=== PATIENT | female | born 1990 | race Caucasian/White ===

== ENCOUNTER 2022-06-14 07:01 | Observation (INO) ==
[2022-06-14] MEDS ORDERED: SODIUM CHLORIDE 0.9% 1000ML 1,000 ML IV SCH ×2 (07:30→11:00)
[2022-06-14] MEDS ORDERED: CEFEPIME 2,000 MG/20 ML VIAL IV STA (07:53)
--- NOTE | 2022-06-14 07:53 | Emergency Department Note ---
Impression & Plan Dizziness, Nausea, Leukocytosis, URI (upper respiratory infection) ED Provider Note ED Provider Note NAME: MARAL PETERSON AGE:31 SEX: Female : 1990 ARRIVES VIA: Private vehicle INFORMANT: Patient ED PROVIDER(s): Caridad Ventura DO CHIEF COMPLAINT: Dizziness, fall, headache, fever HPI: This is a 31-year-old female who presents emergency department due to concern for dizziness, headache, fall this morning, and fever. Patient with recent diagnosis of breast cancer. She just had her first chemotherapy treatme nt at [facility] on Thursday. Patient states since that time she has had nausea and weakness, no overt vomiting. She states she woke up around 2 in the morning to use the bathroom and realize she was very dizzy. She states upon leaving the bathroom she felt so dizzy that things were spinning and she fell in her living room. She states she did not strike her head or lose consciousness and in part fell onto the couch. She states she laid there on the couch and fell back to sleep for several hours. She states when she relates she was dizzy she also felt very nauseated but did not vomit. She states she called for her to try and help her at 5 AM as she needed to use the restroom again but felt severely dizzy and nauseated again. Due to her concerning condition they contacted a friend of theirs who is a mobile phone salesperson who came to the house. They state they also contacted Radha. She states the infrared thermometer showed a reading of 101 F. She did not take any Tylenol or ibuprofen, and they decided to come in for additional evaluation. While driving here, her she contacted them back and instructed them to present to the nearest emergency department also. Patient states headaches for started yesterday and have been persistent, throbbing in nature, worse with movement. She states they start frontal and extending superiorly over her head. Dizziness worse with turning her head. PAST MEDICAL HISTORY:See Below PAST SURGICAL HISTORY:See Below FAMILY HISTORY:See Below SOCIAL HISTORY:See Below HOME MEDICATIONS:See Below ALLERGIES:See Below VITALS:See Below PHYSICAL EXAMINATION: GENERAL: alert, well appearing, well nourished, no distress, non-toxic EYE EXAM: normal conjunctiva, PERRL and EOM's grossly intact, slight rightward nystagmus OROPHARYNX: no exudate, no erythema, lips, buccal mucosa, and tongue normal and mucous membranes are moist NECK: supple, no nuchal rigidity, no adenopathy, non-tender LUNGS: Clear to auscultation. Normal chest wall mechanics, no w/r/r HEART: no murmurs, S1 normal and S2 normal, port noted left anterior superior chest wall ABDOMEN: abdomen soft, non-tender, normo-active bowel sounds, no masses, no rebound or guarding. BACK: Back is symmetrical on inspection and there is no deformity, no midline tenderness, no CVA tenderness. SKIN: no rashes, petechiae, orbruising UPPER EXTREMITIES: upper extremities are grossly normal. FROM, nml pulses b/l. LOWER EXTREMITIES: No pitting edema. FROM, nml pulses b/l. NEURO EXAM: Normal sensorium, cranial nerves II-XII grossly intact, normal sp eech, no facial droop,nogross weakness of arms, no gross weakness of legs. Gross sensation intact. No ataxia. Vital Signs: reviewed and remarkable Differential Diagnosis: ICH, metastatic lesion, benign positional vertigo, dehydration, medication adr, hypovolemia, anemia, occult infection, hypoglycemia, electrolyte abnormalities, toxicologic, neurologic, bacteremia/sepsis as well as others were entertained. MEDICAL DECISION MAKING: This is a 31-year-old female status post recent diagnosis of breast cancer with subsequent port placement, now presenting with dizziness, slight headache, and transient fever. No fever on arrival here and no treatment prior to arrival. Patient otherwise hemodynamically stable. Labs drawn and sent, port accessed, cultures obtained, EKG performed and interpreted by me, chest x-ray performed and interpreted by me at bedside. IV fluids started, patient given empiric cefepime due to concern for immunocompromise status. Patient with significant leukocytosis noted, procalcitonin negative. Patient's other labs reassuring. CT head given dizziness and headache was unremarkable. Patient was noted to have mild nystagmus and vertiginous symptoms worsened with position change. Meclizine was added without any significant improvement. She was given IV fluids greater then 30 mL/KG due to concern for evolving sepsis. She remained hemodynamically stable while in the emergency room. I did contact on-call heme- onc at [facility] and discussed the case. They feel the leukocytosis is more likely related to her Neulasta injection during chemotherapy last week but feel it is appropriate to have her observed until cultures result and to monitor her condition for any changes. I discussed all results with the patient. We also discussed that given recent placement of port, this would need to be further considered should her fevers recur and leukocytosis persist. Patient verbalized understanding of all results and was in agreement with the plan. Case discussed with hospitalist team. Consultation(s): 1002: Discussed with Dr. Pérez, [facility] heme/onc. She feels the leukocytosis is related to the Neulasta injection given following chemo on Thursday. 1105: Discussed with Dr. Mckinley, hospitalist service. ER Treatment Provided: See below Diagnostics Interpreted By Me: -ECG: Normal sinus at 66, normal axis, normal intervals, no acute ST/T wave changes -Cardiac Monitoring: An order was placed for continuous cardiac monitoring. The monitor shows a rate of 68 with normal sinus rhythm. -Laboratory studies: As stated above and show below. -Imaging studies: X-ray Chest: A single view study of the chest was reviewed and was negative for cardiomegaly, focal infiltrate, effusion, pulmonary edema, or wide mediastinum. Triage Nursing Note Reviewed Prior/Outside Records Reviewed -external records reviewed, including recent surgery for port placement and referral to her Procedures: [] Critical Care: [] Past Med/Surg History Medical History (Updated 06/15/22 @ 06:31 by Caridad Ventura DO) Breast cancer Surgical History History of tonsillectomy and adenoidectomy [place] teeth extracted Family History Sister Cervix cancer Denies family history of Ovarian cancer Breast cancer Colorectal cancer Social History Smoking Status: Current some day smoker Tobacco Type: Cigarettes packs per day: 0.5; Hx Alcohol Use: No Hx Substance Use: No Preferred Language: Syriac Communication Ability: Effective Analytical Engineer Required: No Beliefs That Will Affect Care: None Current Living Situation: Family and Significant Other Feels Safe at Home: Yes Assistive Devices: Glasses Allergies Allergies Allergy/AdvReac Type Severity Reaction Status Date / Time No Known Allergies Allergy Verified 06/14/22 11:42 Home Meds Home Medications Medication Instructions Recorded Confirmed levonorgestrel 21 mcg/24 hours (8 1 device intrauterine YEARLY 01/01/22 06/14/22 yrs) 52 mg intrauterine device (Mirena) dexamethasone 4 mg tablet 4 mg PO BID 06/14/22 06/14/22 lidocaine-prilocaine 2.5 %-2.5 % 1 applic topical Q6H PRN Pain 06/14/22 06/14/22 topical cream loratadine 10 mg tablet (Claritin) 10 mg PO DAILY PRN Allergy Symptoms 06/14/22 06/14/22 nicotine (polacrilex) 4 mg gum 4 mg PO USEASDIRECTD 06/14/22 06/14/22 nicotine 14 mg/24 hr daily 1 patch topical DAILY 06/14/22 06/14/22 transdermal patch ondansetron HCl 8 mg tablet 8 mg PO Q12 PRN Nausea 06/14/22 06/14/22 prochlorperazine maleate 10 mg 10 mg PO Q8H PRN Nausea 06/14/22 06/14/22 tablet Results & Data (ED) Vital Signs Vital Signs - 24 hr 06/14/22 07:01 06/14/22 07:30 06/14/22 07:31 Temperature 36.6 C Temperature Source Temporal Artery Scan Pulse Rate 87 69 Pulse Rate [Right Finger] 75 Pulse Rate from SpO2 Sensor Pulse Rhythm Pulse Rhythm [Right Finger] Pulse Strength [Right Finger] Respiratory Rate 16 16 Blood Pressure 125/80 Blood Pressure [Left Arm] 125/77 Blood Pressure Mean 95 Blood Pressure Mean [Left Arm] 93 Blood Pressure Position [Left Arm] Lying Pulse Oximetry 98 97 Oxygen Delivery Method Room Air Sepsis Recent Fever Within 48 Hours Yes Sepsis New/Unexplained Change in Mental Status N/A Sepsis Action Taken by Nursing No Action Required 06/14/22 08:34 06/14/22 08:34 06/14/22 08:31 Temperature 36.8 C Temperature Source Oral Pulse Rate 66 66 Pulse Rate [Right Finger] 68 Pulse Rate from SpO2 Sensor Pulse Rhythm Regular Pulse Rhythm [Right Finger] Regular Pulse Strength [Right Finger] Normal Respiratory Rate 16 16 17 Blood Pressure 114/73 Blood Pressure [Left Arm] Blood Pressure Mean 86 Blood Pressure Mean [Left Arm] Blood Pressure Position [Left Arm] Lying Pulse Oximetry 98 96 96 Oxygen Delivery Method Room Air Room Air Room Air Sepsis Recent Fever Within 48 Hours Sepsis New/Unexplained Change in Mental Status Sepsis Action Taken by Nursing 06/14/22 10:00 Temperature Temperature Source Pulse Rate Pulse Rate [Right Finger] Pulse Rate from SpO2 Sensor 60 Pulse Rhythm Pulse Rhythm [Right Finger] Pulse Strength [Right Finger] Respiratory Rate 18 Blood Pressure 115/63 Blood Pressure [Left Arm] Blood Pressure Mean 80 Blood Pressure Mean [Left Arm] Blood Pressure Position [Left Arm] Pulse Oximetry 99 Oxygen Delivery Method Room Air Sepsis Recent Fever Within 48 Hours Sepsis New/Unexplained Change in Mental Status Sepsis Action Taken by Nursing Laboratory Data 06/14/22 07:33 06/14/22 07:33 Lab Results 06/14/22 06/14/22 06/14/22 Range/Units 07:33 07:33 07:33 WBC 28.89 H (4.8-10.8) K/ul RBC 4.82 (4.20-5.40) M/uL Hgb 14.3 (12.0-16.0) g/dl Hct 40.3 (37.0-47.0) % MCV 83.6 (80.0-100.0) fL MCH 29.7 (25.0-34.0) pg MCHC 35.5 (32.0-36.0) g/dL RDW Std Deviation 37.3 (36.4-46.3) fL RDW Coeff of Crys 12.3 (11.5-14.5) % Plt Count 212 (130-400) K/uL MPV 10.5 (9.4-12.4) fL Neutrophils % (Manual) 97 % Lymphocytes % (Manual) 2 % Metamyelocytes % (Man) 1 % Neutrophils # (Manual) 28.02 H (1.40-6.50) K/uL Total Absolute Neuts 28.02 H (1.4-6.5) K/uL Lymphocytes # (Manual) 0.58 L (1.2-3.4) K/uL Total Abs Lymphocytes 0.58 L (1.2-3.4) K/uL Metamyelocytes # (Man) 0.29 H (0-0) K/uL Sodium 136 (136-145) mmol/L Potassium 4.3 (3.5-5.1) mmol/L Chloride 104 (98-107) mmol/L Carbon Dioxide 28 (21-32) mmol/L Anion Gap 4 (3-11) BUN 13 (6-23) mg/dl Creatinine 0.64 (0.6-1.2) mg/dl Est Cr Clr Drug Dosing 135.0 ml/min Est GFR ( Amer) 135.9 ml/min Est GFR (Non-Af Amer) 117.2 ml/min BUN/Creatinine Ratio 20.3 H (10-20) Glucose 94 (70-99(Fasting)) mg/dl Lactate 1.1 (0.4-2.0) mmol/L Calcium 8.9 (8.5-10.1) mg/dl Magnesium 2.2 (1.7-2.4) mg/dl Total Bilirubin 1.1 H (0.2-1.0) mg/dl Direct Bilirubin 0.2 (0-0.2) mg/dl AST 13 (13-39) U/L ALT 13 (7-52) U/L Alkaline Phosphatase 68 (34-104) U/L Troponin I High Sens 4.2 (0-14) pg/ml Total Protein 6.8 (6.0-8.3) gm/dl Albumin 4.3 (3.4-5.0) gm/dl Procalcitonin (0-0.5) ng/ml HCG, Qual (Negative) Urine Color Urine Appearance (Clear) Urine pH (4.5-7.5) Ur Specific Luna (1.000-1.030) Urine Protein (Negative) Urine Glucose (UA) (Negative) Urine Ketones (Negative) Urine Blood (Negative) Urine Nitrite (Negative) Urine Bilirubin (Negative) Urine Urobilinogen (Negative) Ur Leukocyte Esterase (Negative) Adenovirus (PCR) (NotDetected) B. pertussis DNA (PCR) (NotDetected) B.parapertussis DNA PCR (NotDetected) C. pneumoniae DNA (PCR) (NotDetected) Coronavirus OC43 (PCR) (NotDetected) Coronavirus HKU1 (PCR) (NotDetected) Coronavirus 229E (PCR) (NotDetected) SARS-CoV-2 (PCR) (NotDetected) Coronavirus NL63 (PCR) (NotDetected) Human Metapneumovir PCR (NotDetected) Influenza Type A (PCR) (NotDetected) Influenza Type B (PCR) (NotDetected) M. pneumoniae (PCR) (NotDetected) Parainfluenza 1 (PCR) (NotDetected) Parainfluenza 2 (PCR) (NotDetected) Parainfluenza 3 (PCR) (NotDetected) Parainfluenza 4 (PCR) (NotDetected) RSV (PCR) (NotDetected) Entero/Rhino (PCR) (NotDetected) 06/14/22 06/14/22 06/14/22 Range/Units 07:33 07:33 09:09 WBC (4.8-10.8) K/ul RBC (4.20-5.40) M/uL Hgb (12.0-16.0) g/dl Hct (37.0-47.0) % MCV (80.0-100.0) fL MCH (25.0-34.0) pg MCHC (32.0-36.0) g/dL RDW Std Deviation (36.4-46.3) fL RDW Coeff of Crys (11.5-14.5) % Plt Count (130-400) K/uL MPV (9.4-12.4) fL Neutrophils % (Manual) % Lymphocytes % (Manual) % Metamyelocytes % (Man) % Neutrophils # (Manual) (1.40-6.50) K/uL Total Absolute Neuts (1.4-6.5) K/uL Lymphocytes # (Manual) (1.2-3.4) K/uL Total Abs Lymphocytes (1.2-3.4) K/uL Metamyelocytes # (Man) (0-0) K/uL Sodium (136-145) mmol/L Potassium (3.5-5.1) mmol/L Chloride (98-107) mmol/L Carbon Dioxide (21-32) mmol/L Anion Gap (3-11) BUN (6-23) mg/dl Creatinine (0.6-1.2) mg/dl Est Cr Clr Drug Dosing ml/min Est GFR ( Amer) ml/min Est GFR (Non-Af Amer) ml/min BUN/Creatinine Ratio (10-20) Glucose (70-99(Fasting)) mg/dl Lactate (0.4-2.0) mmol/L Calcium (8.5-10.1) mg/dl Magnesium (1.7-2.4) mg/dl Total Bilirubin (0.2-1.0) mg/dl Direct Bilirubin (0-0.2) mg/dl AST (13-39) U/L ALT (7-52) U/L Alkaline Phosphatase (34-104) U/L Troponin I High Sens (0-14) pg/ml Total Protein (6.0-8.3) gm/dl Albumin (3.4-5.0) gm/dl Procalcitonin 0.10 (0-0.5) ng/ml HCG, Qual Negative (Negative) Urine Color Urine Appearance (Clear) Urine pH (4.5-7.5) Ur Specific Luna (1.000-1.030) Urine Protein (Negative) Urine Glucose (UA) (Negative) Urine Ketones (Negative) Urine Blood (Negative) Urine Nitrite (Negative) Urine Bilirubin (Negative) Urine Urobilinogen (Negative) Ur Leukocyte Esterase (Negative) Adenovirus (PCR) Not Detected (NotDetected) B. pertussis DNA (PCR) Not Detected (NotDetected) B.parapertussis DNA PCR Not Detected (NotDetected) C. pneumoniae DNA (PCR) Not Detected (NotDetected) Coronavirus OC43 (PCR) Not Detected (NotDetected) Coronavirus HKU1 (PCR) Not Detected (NotDetected) Coronavirus 229E (PCR) Not Detected (NotDetected) SARS-CoV-2 (PCR) Not Detected (NotDetected) Coronavirus NL63 (PCR) Not Detected (NotDetected) Human Metapneumovir PCR Not Detected (NotDetected) Influenza Type A (PCR) Not Detected (NotDetected) Influenza Type B (PCR) Not Detected (NotDetected) M. pneumoniae (PCR) Not Detected (NotDetected) Parainfluenza 1 (PCR) Not Detected (NotDetected) Parainfluenza 2 (PCR) Not Detected (NotDetected) Parainfluenza 3 (PCR) Not Detected (NotDetected) Parainfluenza 4 (PCR) Not Detected (NotDetected) RSV (PCR) Not Detected (NotDetected) Entero/Rhino (PCR) DETECTED A* (NotDetected) 06/14/22 Range/Units 09:13 WBC (4.8-10.8) K/ul RBC (4.20-5.40) M/uL Hgb (12.0-16.0) g/dl Hct (37.0-47.0) % MCV (80.0-100.0) fL MCH (25.0-34.0) pg MCHC (32.0-36.0) g/dL RDW Std Deviation (36.4-46.3) fL RDW Coeff of Crys (11.5-14.5) % Plt Count (130-400) K/uL MPV (9.4-12.4) fL Neutrophils % (Manual) % Lymphocytes % (Manual) % Metamyelocytes % (Man) % Neutrophils # (Manual) (1.40-6.50) K/uL Total Absolute Neuts (1.4-6.5) K/uL Lymphocytes # (Manual) (1.2-3.4) K/uL Total Abs Lymphocytes (1.2-3.4) K/uL Metamyelocytes # (Man) (0-0) K/uL Sodium (136-145) mmol/L Potassium (3.5-5.1) mmol/L Chloride (98-107) mmol/L Carbon Dioxide (21-32) mmol/L Anion Gap (3-11) BUN (6-23) mg/dl Creatinine (0.6-1.2) mg/dl Est Cr Clr Drug Dosing ml/min Est GFR ( Amer) ml/min Est GFR (Non-Af Amer) ml/min BUN/Creatinine Ratio (10-20) Glucose (70-99(Fasting)) mg/dl Lactate (0.4-2.0) mmol/L Calcium (8.5-10.1) mg/dl Magnesium (1.7-2.4) mg/dl Total Bilirubin (0.2-1.0) mg/dl Direct Bilirubin (0-0.2) mg/dl AST (13-39) U/L ALT (7-52) U/L Alkaline Phosphatase (34-104) U/L Troponin I High Sens (0-14) pg/ml Total Protein (6.0-8.3) gm/dl Albumin (3.4-5.0) gm/dl Procalcitonin (0-0.5) ng/ml HCG, Qual (Negative) Urine Color Yellow Urine Appearance Clear (Clear) Urine pH 6.5 (4.5-7.5) Ur Specific Luna 1.016 (1.000-1.030) Urine Protein Negative (Negative) Urine Glucose (UA) Negative (Negative) Urine Ketones Negative (Negative) Urine Blood Negative (Negative) Urine Nitrite Negative (Negative) Urine Bilirubin Negative (Negative) Urine Urobilinogen Negative (Negative) Ur Leukocyte Esterase Negative (Negative) Adenovirus (PCR) (NotDetected) B. pertussis DNA (PCR) (NotDetected) B.parapertussis DNA PCR (NotDetected) C. pneumoniae DNA (PCR) (NotDetected) Coronavirus OC43 (PCR) (NotDetected) Coronavirus HKU1 (PCR) (NotDetected) Coronavirus 229E (PCR) (NotDetected) SARS-CoV-2 (PCR) (NotDetected) Coronavirus NL63 (PCR) (NotDetected) Human Metapneumovir PCR (NotDetected) Influenza Type A (PCR) (NotDetected) Influenza Type B (PCR) (NotDetected) M. pneumoniae (PCR) (NotDetected) Parainfluenza 1 (PCR) (NotDetected) Parainfluenza 2 (PCR) (NotDetected) Parainfluenza 3 (PCR) (NotDetected) Parainfluenza 4 (PCR) (NotDetected) RSV (PCR) (NotDetected) Entero/Rhino (PCR) (NotDetected) Administered Medications Acetaminophen (Acetaminophen 325 Mg Tab) 650 mg PO Q4H PRN PRN Reason: pain/fever Stop: 07/14/22 13:11 Last Admin: 06/14/22 19:45 Dose: 650 mg Documented By: Admin: 06/14/22 14:20 Dose: 650 mg Documented By: KD Enoxaparin Sodium (Enoxaparin Inj 40 Mg/0.4 Ml Syr) 40 mg SQ QPM EVANGELISTA Stop: 07/14/22 20:59 Last Admin: 06/14/22 19:46 Dose: Not Given Documented By: ARPITA Heparin Sodium (Porcine) (Heparin 100 Unit/Ml 5ml Flush) 5 ml FLUSH PRN PRN PRN Reason: Flush Stop: 07/14/22 14:15 Last Admin: 06/15/22 05:10 Dose: 5 ml Documented By: Admin: 06/14/22 21:41 Dose: 5 ml Documented By: Admin: 06/14/22 14:21 Dose: 5 ml Documented By: PEEWEE Cefepime HCl 2,000 mg/ Syringe 20 mls @ 5 mls/min IV Q8H EVANGELISTA; Protocol Stop: 06/16/22 20:59 Last Admin: 06/15/22 05:10 Dose: 5 mls/min Documented By: Admin: 06/14/22 21:41 Dose: 5 mls/min Documented By: ARPITA Loratadine (Loratadine 10 Mg Tab) 10 mg PO DAILY EVANGELISTA Stop: 07/14/22 13:11 Last Admin: 06/14/22 14:52 Dose: 10 mg Documented By: PEEWEE Miscellaneous (Remove Nicoderm Patch) 1 each N/A QAM EVANGELISTA Stop: 07/14/22 13:59 Last Admin: 06/14/22 14:04 Dose: Not Given Documented By: PEEWEE Nicotine (Nicotine 14 Mg/24 Hr Patch) 14 mg TD QAM [facility] Stop: 07/14/22 13:59 Last Admin: 06/14/22 14:04 Dose: Not Given Documented By: PEEWEE Polyethylene Glycol (Polyethylene (Miralax) 17 Gm Pack) 17 gm PO BID EVANGELISTA Stop: 07/14/22 20:59 Last Admin: 06/14/22 19:45 Dose: 17 gm Documented By: ARPITA Discontinued Medications Sodium Chloride (Nss 1000ml) 1,000 mls @ 999 mls/hr IV .Q1H1M EVANGELISTA Stop: 06/14/22 08:30 Last Infusion: 06/14/22 09:43 Dose: 0 mls/hr Documented By: Admin: 06/14/22 08:24 Dose: 999 mls/hr Documented By: KAYLEN Cefepime HCl (Maxipime) 2,000 mg in 20 mls @ 5 mls/min IV NOW STA; Protocol Stop: 06/14/22 07:56 Last Admin: 06/14/22 08:24 Dose: 5 mls/min Documented By: KAYLEN Acetaminophen (Ofirmev) 1,000 mg in 100 mls @ 400 mls/hr IV NOW STA Stop: 06/14/22 08:08 Last Infusion: 06/14/22 09:21 Dose: 0 mls/hr Documented By: Admin: 06/14/22 08:24 Dose: 400 mls/hr Documented By: KAYLEN Sodium Chloride (Nss 1000ml) 1,000 mls @ 999 mls/hr IV .Q1H1M ONE Stop: 06/14/22 09:49 Last Infusion: 06/14/22 10:33 Dose: 0 mls/hr Documented By: Admin: 06/14/22 09:22 Dose: 999 mls/hr Documented By: KAYLEN Sodium Chloride (Nss 1000ml) 1,000 mls @ 125 mls/hr IV .Q8H EVANGELISTA Stop: 07/14/22 10:59 Last Infusion: 06/14/22 13:45 Dose: 0 mls/hr Documented By: Admin: 06/14/22 12:25 Dose: 125 mls/hr Documented By: QGV Ketorolac Tromethamine (Ketorolac Tromethamine 15 Mg/Ml Vial) 10 mg IV NOW ONE Stop: 06/14/22 09:42 Last Admin: 06/14/22 09:52 Dose: 10 mg Documented By: KAYLEN Meclizine HCl (Meclizine Hcl 25 Mg Tab) 25 mg PO NOW STA Stop: 06/14/22 09:42 Last Admin: 06/14/22 09:52 Dose: 25 mg Documented By: KAYLEN Ondansetron HCl (Ondansetron Inj 2 Mg/Ml 2 Ml Vial) 4 mg IV NOW STA Stop: 06/14/22 07:55 Last Admin: 06/14/22 08:24 Dose: 4 mg Documented By: KAYLEN Polyethylene Glycol (Polyethylene (Miralax) 17 Gm Pack) 17 gm PO ONE STA Stop: 06/14/22 12:18 Last Admin: 06/14/22 12:31 Dose: 17 gm Documented By: QGV Imaging Data Radiologist's Impression: Chest X-Ray 06/14/22 07:19 XR chest 1V portable CLINICAL HISTORY: Sepsis TECHNIQUE: Single frontal radiograph of the chest was obtained. Comparison: None available at the time of this dictation. FINDINGS: A port catheter is seen. The cardiomediastinal silhouette is normal. The lungs are clear. No evidence of pleural effusion or pneumothorax. IMPRESSION: No acute chest disease. ACT 112: Negative or not required by law. Electronically signed by: Guille Gilmore M.D. 06/14/2022 8:[address] 06/14/22 07:41 CT head/brain wo con CLINICAL HISTORY: headache, dizzy, recent chemo Technique: Contiguous axial CT images of the head were acquired from the base of the skull to the vertex without intravenous contrast administration. Images were viewed in brain, subdural and bone windows. Automated dose lowering techniques and/or adjustment according to patient size were utilized for this exam. Comparison: None available at the time of this dictation. Findings: The ventricles, basal cisterns, and cerebral sulci are normal. There is no acute intracranial hemorrhage or evidence of acute territorial infarction. Neither mass effect, shift of the midline structures, nor abnormal extra-axial fluid collections are shown. Imaged portions of the paranasal sinuses and mastoid air cells are clear. The orbits appear normal. There are no acute fractures of the calvaria or scalp swelling. Impression: No acute intracranial hemorrhage, no evidence of acute territorial infarction or other acute intracranial disease process. ACT 112: Negative or not required by law. Electronically signed by: Guille Gilmore M.D. 06/14/2022 8:23 AM Discharge Plan Visit Data Chief Complaint: Vertigo Stated Complaint: FEVER ED Provider: Caridad Ventura Discharge Problem: Dizziness, Nausea, Leukocytosis, URI (upper respiratory infection) Patient Disposition: Admitted As Inpatient Discharge Instructions Interventions: ED Discharge Assessment Last Done: 06/14/22 12:50
[2022-06-14] MEDS ORDERED: ACETAMINOPHEN 1,000 MG/100 ML VIAL IV STA (07:54)
[2022-06-14] MEDS ORDERED: ONDANSETRON INJ 2 MG/ML 2 ML VIAL IV STA (07:54)
[2022-06-14 08:14] LABS: Albumin Level 4.3 gm/dl (3.4-5.0); BUN Creatinine Ratio 20.3 (10-20); Bilirubin Direct 0.2 mg/dl (0-0.2); Bilirubin,Total 1.1 mg/dl (0.2-1.0); Calcium 8.9 mg/dl (8.5-10.1); Est GFR (African American) 135.9 ml/min; Est GFR (Non-African American) 117.2 ml/min; Magnesium 2.2 mg/dl (1.7-2.4); Potassium 4.3 mmol/L (3.5-5.1); Total Protein 6.8 gm/dl (6.0-8.3)
[2022-06-14 08:15] LABS: Hematocrit (blood only) 40.3 % (37.0-47.0); Hemoglobin 14.3 g/dl (12.0-16.0); Mean Corpuscular Hemoglobin 29.7 pg (25.0-34.0); Mean Corpuscular Hgb Conc 35.5 g/dL (32.0-36.0); Mean Corpuscular Volume 83.6 fL (80.0-100.0); Mean Platelet Volume 10.5 fL (9.4-12.4); Platelet Count 212 K/uL (130-400); RDW Coefficient of Variation 12.3 % (11.5-14.5); RDW Standard Deviation 37.3 fL (36.4-46.3); Red Blood Count 4.82 M/uL (4.20-5.40); White Blood Count 28.89 K/ul (4.8-10.8)
[2022-06-14 08:17] LABS: Pregnancy Test, Serum Negative (Negative)
--- NOTE | 2022-06-14 08:18 | XRay Report ---
XR chest 1V portable CLINICAL HISTORY: Sepsis TECHNIQUE: Single frontal radiograph of the chest was obtained. Comparison: None available at the time of this dictation. FINDINGS: A port catheter is seen. The cardiomediastinal silhouette is normal. The lungs are clear. No evidence of pleural effusion or pneumothorax. IMPRESSION: No acute chest disease. ACT 112: Negative or not required by law. Electronically signed by: Guille Gilmore M.D. 06/14/2022 8:16 AM
[2022-06-14 08:19] LABS: Troponin I High Sensitivity 4.2 pg/ml (0-14)
[2022-06-14 08:23] LABS: ALC (manual) 0.58 K/uL (1.2-3.4); ANC (manual) 28.02 K/uL (1.4-6.5); Lymphocytes # (manual) 0.58 K/uL (1.2-3.4); Lymphocytes % (manual) 2 %; Metamyelocytes # (manual) 0.29 K/uL (0-0); Metamyelocytes % (manual) 1 %; Neutrophils # (manual) 28.02 K/uL (1.40-6.50); Neutrophils % (manual) 97 %
--- NOTE | 2022-06-14 08:24 | CT Scan Report ---
CT head/brain wo con CLINICAL HISTORY: headache, dizzy, recent chemo Technique: Contiguous axial CT images of the head were acquired from the base of the skull to the jeffrey rommel without intravenous contrast administration. Images were viewed in brain, subdural and bone [facility]. Automated dose lowering techniques and/or adjustment according to patient size were utilized for this exam. Comparison: None available at the time of this dictation. Findings: The ventricles, basal cisterns, and cerebral sulci are normal. There is no acute intracranial hemorrh age or evidence of acute territorial infarction. Neither mass effect, shift of the midline structures , nor abnormal extra-axial fluid collections are shown. Imaged portions of the paranasal sinuses and mastoid air cells are clear. The orbits appear normal. There are no acute fractures of the calvaria or scalp swelling. Impression: No acute intracranial hemorrhage, no evidence of acute territorial infarction or other acute intracra nial disease process. ACT 112: Negative or not required by law. Electronically signed by: Guille Gilmore M.D. 06/14/2022 8:23 AM
[2022-06-14] MEDS ORDERED: SODIUM CHLORIDE 0.9% 1000ML 1,000 ML IV ONE (08:49)
[2022-06-14 09:30] LABS: Appearance Urine Clear (Clear); Bilirubin Urine Negative (Negative); Blood Urine Negative (Negative); Color Urine Yellow; Glucose Urine UA Negative (Negative); Ketones Urine Negative (Negative); Leukocyte Esterase Urine Negative (Negative); Nitrite Urine Negative (Negative); Protein Urine Negative (Negative); Specific Gravity Urine 1.016 (1.000-1.030); Urobilinogen Urine Negative (Negative); pH Urine 6.5 (4.5-7.5)
[2022-06-14] MEDS ORDERED: MECLIZINE HCL 25 MG TAB PO STA (09:41)
[2022-06-14] MEDS ORDERED: KETOROLAC TROMETHAMINE 15 MG/ML VIAL IV ONE (09:41)
[2022-06-14 10:23] LABS: Adenovirus PCR Not Detected (NotDetected); Bordetella parapertussis PCR Not Detected (NotDetected); Bordetella pertussis PCR Not Detected (NotDetected); Chlamydia pneumoniae PCR Not Detected (NotDetected); Coronavirus 229E PCR Not Detected (NotDetected); Coronavirus CoV-2 (COVID19)PCR Not Detected (NotDetected); Coronavirus HKU1 PCR Not Detected (NotDetected); Coronavirus NL63 PCR Not Detected (NotDetected); Coronavirus OC43PCR Not Detected (NotDetected); Human Metapneumovirus PCR Not Detected (NotDetected); Influenza A PCR Not Detected (NotDetected); Influenza B PCR Not Detected (NotDetected); Mycoplasma pneumoniae PCR Not Detected (NotDetected); Parainfluenza Virus 1 PCR Not Detected (NotDetected); Parainfluenza Virus 2 PCR Not Detected (NotDetected); Parainfluenza Virus 3 PCR Not Detected (NotDetected); Parainfluenza Virus 4 PCR Not Detected (NotDetected); Respiratory Syncytial VirusPCR Not Detected (NotDetected)
[2022-06-14 10:33] LABS: Rhinovirus/Enterovirus PCR DETECTED (NotDetected)
--- NOTE | 2022-06-14 11:35 | History & Physical Report ---
Date of Service June 14, 2022 Assessment & Plan (1) Fever: Plan: Occurred at home and not recurred here. If symptoms not improving or recurrent fever consider lumbar puncture and brain MRI w/wo contrast (2) Vertigo: Plan: Currently resolved in the ER while in bed after ceclizine given Suspect peripheral vertigo in setting of viral infection - ie. vestibular neuritis given concurrent viral infection, young age, no focal neurology elsewhere. Meclizine 25mg PO q8h PRN for vertigo If symptoms not improving or recurrent fever consider lumbar puncture and brain MRI w/wo contrast as above Less likely migrainous given history and current headache (3) Headache: Plan: Suspect secondary to viral infection Very low suspicion of encephalitis/meningitis Does not fit with her usual migraines acetaminophen PRN MRI brain +/- lumbar puncture criteria as above (4) Acute viral syndrome: Plan: Rhino/enterovirus positive - suspect acute illness and vertigo due to this Supportive care only (5) Leucocytosis: Plan: Suspected secondary to Neulasta rather than infective etiology but given recent chemotherapy: Blood cultures - taken from both port and peripherally Empiric cefepime (6) Breast cancer: Plan VTE Prophylaxis - Lovenox 40mg SQ daily Diet - regular Disposition - admit to med/surg Admission and Anticipated Discharge Date Admission Date: June 14, 2022 History of Present Illness Chief Complaint: Fever, headache, vertigo Primary Care Provider: DO Stefania Coppola is a 31 year old female with breast cancer s/p double mastectomy on chemotherapy who presents to the ER with nausea, headache, dizziness and fever. She started her first round of chemotherapy on Thursday with nausea since then. She is on docetaxel and cyclophosphamide. She had a mild reaction of face tingling while on cyclophosphamide at the time of the infusion but this resolved with Benadryl. On dexamethasone day before and 2 days after procedure only (took last dose yesterday evening). This morning she woke up around 2am and had sudden onset room spinning dizziness and nausea. She has been having vertigo since then with associated headache. No prior history of vertigo. She has a history of migraines but those headaches feel distinctly different to her headache today which is less light sensitive and no associated nausea. Current headache is pounding, all over her head, severity 5/10 currently, 7/10 at worse. She denies any neck pain. They took her temperature which was 101 degrees Fahrenheit this morning which prompted her to come to the ER for further evaluation. No nasal congestion, sinus pain, cough, shortness of breath, chest pain, abdominal pain, diarrhea. She does not constipation with no bowel movement since chemotherapy and took a Dulcolax unsuccessfully last night. She is passing flatus. In the ER she was given acetaminophen, Toradol, ondansetron, 2L NSS bolus and meclizine to good effect and she is feeling much improved without vertigo at this time but still with a headache. ER provider discussed with [facility] and recommended empiric antibiotics with cefepime and observation while blood cultures are pending. She was referred to medicine for admission and ongoing management of fever, chemo, upper respiratory infection. Allergies Allergy/AdvReac Type Severity Reaction Status Date / Time No Known Allergies Allergy Verified 06/14/22 11:42 Home Medications Medication Instructions Recorded Confirmed Type levonorgestrel 21 mcg/24 hours (8 1 device intrauterine YEARLY 01/01/22 06/14/22 History yrs) 52 mg intrauterine device (Mirena) dexamethasone 4 mg tablet 4 mg PO BID 06/14/22 06/14/22 History lidocaine-prilocaine 2.5 %-2.5 % 1 applic topical Q6H PRN Pain 06/14/22 06/14/22 History topical cream loratadine 10 mg tablet (Claritin) 10 mg PO DAILY PRN Allergy Symptoms 06/14/22 06/14/22 History nicotine (polacrilex) 4 mg gum 4 mg PO USEASDIRECTD 06/14/22 06/14/22 History nicotine 14 mg/24 hr daily 1 patch topical DAILY 06/14/22 06/14/22 History transdermal patch ondansetron HCl 8 mg tablet 8 mg PO Q12 PRN Nausea 06/14/22 06/14/22 History prochlorperazine maleate 10 mg 10 mg PO Q8H PRN Nausea 06/14/22 06/14/22 History tablet Past Med/Surg History Medical History (Updated 06/14/22 @ 12:48 by Ishan Mckinley MD) Breast cancer Surgical History History of tonsillectomy and adenoidectomy [place] teeth extracted Family History Sister Cervix cancer Denies family history of Ovarian cancer Breast cancer Colorectal cancer Social History Smoking Status: Current every day smoker Tobacco Type: Cigarettes packs per day: 0.5; Preferred Language: Estonian Feels Safe at Home: Yes Review of Systems Review of Systems: All systems reviewed & are unremarkable except as noted in HPI & below Physical Exam Constitutional: WD/WN, vitals as above Eyes: PERRL, conjunctivae normal, anicteric sclerae EOM intact bilaterally; no nystagmus ENMT: external ear and nose normal, oropharynx normal Neck: trachea midline, no thyromegaly Respiratory: normal respiratory effort, lungs clear to auscultation Cardiovascular: RRR, no murmur, no edema Gastrointestinal (Abdomen): normal bowel sounds, soft, nontender, no hepatosplenomegaly Musculoskeletal: no cyanosis or clubbing, extremities motor strength 5/5 Skin: no rashes, warm and dry Neurologic: moves all extremities and awake; no focal motor deficits and not confused Speech / Cognition: normal speech Motor/Sensory: no tremor Cranial Nerves: PERRL, normal accommodation, EOM intact bilaterally, normal facial strength, tongue midline, able to rotate head bilaterally, able to elevate shoulders bilaterally, no nystagmus and symmetric palate elevation Coordination: normal [id number] test Psychiatric: A+Ox3, euthymic affect Results & Data Results & Data ([facility]) Vital Signs (Past 12 Hours) Vital Signs Temp Pulse Pulse Resp BP BP Pulse Ox 06/14/22 10:00 18 115/63 99 06/14/22 08:31 66 17 114/73 96 06/14/22 08:34 36.8 C 68 16 96 06/14/22 08:34 66 16 98 06/14/22 07:31 69 06/14/22 07:30 75 16 125/77 97 06/14/22 07:01 36.6 C 87 16 125/80 98 O2 Del Method 06/14/22 10:00 Room Air 06/14/22 08:31 Room Air 06/14/22 08:34 Room Air 06/14/22 08:34 Room Air 06/14/22 07:31 06/14/22 07:30 Room Air 06/14/22 07:01 Laboratory Results Abnormal lab results 06/14/22 06/14/22 06/14/22 Range/Units 07:33 07:33 09:09 WBC 28.89 H (4.8-10.8) K/ul Neutrophils # (Manual) 28.02 H (1.40-6.50) K/uL Total Absolute Neuts 28.02 H (1.4-6.5) K/uL Lymphocytes # (Manual) 0.58 L (1.2-3.4) K/uL Total Abs Lymphocytes 0.58 L (1.2-3.4) K/uL Metamyelocytes # (Man) 0.29 H (0-0) K/uL BUN/Creatinine Ratio 20.3 H (10-20) Total Bilirubin 1.1 H (0.2-1.0) mg/dl Entero/Rhino (PCR) DETECTED A* (NotDetected) Diagnostic Findings CT head/brain wo con CLINICAL HISTORY: headache, dizzy, recent chemo Technique: Contiguous axial CT images of the head were acquired from the base of the skull to the vertex without intravenous contrast administration. Images were viewed in brain, subdural and bone windows. Automated dose lowering techniques a nd/or adjustment according to patient size were utilized for this exam. Comparison: None available at the time of this dictation. Findings: The ventricles, basal cisterns, and cerebral sulci are normal. There is no acute intracranial hemorrhage or evidence of acute territorial infarction. Neither mass effect, shift of the midline structures, nor abnormal extra-axial fluid collections are shown. Imaged portions of the paranasal sinuses and mastoid air cells are clear. The orbits appear normal. There are no acute fractures of the calvaria or scalp swelling. Impression: No acute intracranial hemorrhage, no evidence of acute territorial infarction or other acute intracranial disease process. XR chest 1V portable CLINICAL HISTORY: Sepsis TECHNIQUE: Single frontal radiograph of the chest was obtained. Comparison: None available at the time of this dictation. FINDINGS: A port catheter is seen. The cardiomediastinal silhouette is normal. The lungs are clear. No evidence of pleural effusion or pneumothorax. IMPRESSION: No acute chest disease. Medications Administered ER Medications Given: NSS 1L bolus Cefepime 2g IV Ondansetron 4mg IV Acetaminophen 1g IV NSS 1L bolus Meclizine 25mg PO Toradol 10mg IV ECG Indication: other Rate (beats per minute): 66 Rhythm: normal sinus Findings: no acute ischemic change Comparison ECG Date: no prior available Code Status & VTE Plan Code Status Full VTE Prophylaxis Plan VTE Prophylaxis will be ordered: Yes PG Care Time/CCT Total # of Minutes Spent Total Time Spent with Patient: Total time spent is greater than 50% in coordination of care (as documented) at patient's floor/unit and/or counseling patient: Coding Level of Care Code 53010 INT INP/OBS CARE 3/75MIN Diagnoses Fever R50.9 Vertigo R42 Headache R51.9 Acute viral syndrome B34.9 Leucocytosis D72.829 Breast cancer C50.919
[2022-06-14] MEDS ORDERED: POLYETHYLENE (MIRALAX) 17 GM PACK PO STA (12:17)
[2022-06-14] MEDS ORDERED: ONDANSETRON INJ 2 MG/ML 2 ML VIAL IV PRN (13:12)
[2022-06-14] MEDS ORDERED: MECLIZINE HCL 25 MG TAB PO PRN (13:12)
[2022-06-14] MEDS ORDERED: PROCHLORPERAZINE 10 MG in SYRINGE 8 ML IV PRN (13:12)
[2022-06-14] MEDS ORDERED: NICOTINE POLACRILEX 2 MG GUM MT PRN (13:23)
[2022-06-14] MEDS: NICOTINE 14 MG/24 HR PATCH TD SCH (14:04)
[2022-06-14] MEDS: ACETAMINOPHEN 325 MG TAB PO PRN ×2 (14:20→19:45)
[2022-06-14] MEDS: HEPARIN 100 UNIT/ML 5ML FLUSH FLUSH PRN ×2 (14:21→21:41)
--- NOTE | 2022-06-14 14:32 | Electrocardiogram Report ---
Test Reason : Blood Pressure : / mmHG Vent. Rate : 066 BPM Atrial Rate : 066 BPM P-R Int : 148 ms QRS Dur : 086 ms QT Int : 390 ms P-R-T Axes : 073 061 045 degrees QTc Int : 408 ms Normal sinus rhythm Normal ECG No previous ECGs available Confirmed by Dario Urrutia ([id number]) on 06/14/2022 2:31:48 PM Referred By: REFERRED SELF Confirmed By:Dario Urrutia
[2022-06-14] MEDS: LORATADINE 10 MG TAB PO SCH (14:52)
[2022-06-14] MEDS: POLYETHYLENE (MIRALAX) 17 GM PACK PO SCH (19:45)
[2022-06-14] MEDS ORDERED: KETOROLAC TROMETHAMINE 15 MG/ML VIAL IV PRN (20:51)
[2022-06-14] MEDS ORDERED: ENOXAPARIN INJ 40 MG/0.4 ML SYR SQ SCH (21:00)
[2022-06-14] MEDS: CEFEPIME 2,000 MG in SYRINGE 0 ML IV SCH (21:41)
[2022-06-15] MEDS: CEFEPIME 2,000 MG in SYRINGE 0 ML IV SCH (05:10)
[2022-06-15] MEDS: HEPARIN 100 UNIT/ML 5ML FLUSH FLUSH PRN (05:10)
[2022-06-15] MEDS: ACETAMINOPHEN 325 MG TAB PO PRN (08:25)
[2022-06-15] MEDS: NICOTINE 14 MG/24 HR PATCH TD SCH (08:26)
[2022-06-15] MEDS: LORATADINE 10 MG TAB PO SCH (08:26)
[2022-06-15] MEDS: POLYETHYLENE (MIRALAX) 17 GM PACK PO SCH (08:27)
--- NOTE | 2022-06-15 12:42 | Discharge Summary ---
Date of Service June 15, 2022 Admission HPI Per Admitting Provider Stefania Altman is a 31 year old female with breast cancer s/p double mastectomy on chemotherapy who presents to the ER with nausea, headache, dizziness and fever. She started her first round of chemotherapy on Thursday with nausea since then. She is on docetaxel and cyclophosphamide. She had a mild reaction of face tingling while on cyclophosphamide at the time of the infusion but this resolved with Benadryl. On dexamethasone day before and 2 days after procedure only (took last dose yesterday evening). This morning she woke up around 2am and had sudden onset room spinning dizziness and nausea. She has been having vertigo since then with associated headache. No prior history of vertigo. She has a history of migraines but those headaches feel distinctly different to her headache today which is less light sensitive and no associated nausea. Current headache is pounding, all over her head, severity 5/10 currently, 7/10 at worse. She denies any neck pain. They took her temperature which was 101 degrees Fahre nheit this morning which prompted her to come to the ER for further evaluation. No nasal congestion, sinus pain, cough, shortness of breath, chest pain, abdominal pain, diarrhea. She does not constipation with no bowel movement since chemotherapy and took a Dulcolax unsuccessfully last night. She is passing flatus. In the ER she was given acetaminophen, Toradol, ondansetron, 2L NSS bolus and meclizine to good effect and she is feeling much improved without vertigo at this time but still with a headache. ER provider discussed with [facility] and recommended empiric antibiotics with cefepime and observation while blood cultures are pending. She was referred to medicine for admission and ongoing management of fever, chemo, upper respiratory infection. Principal Diagnosis acute viral illness Discharge Exam The patient is awake, alert and oriented 3, well developed and well nourished, normocephalic and atraumatic, lying in bed and in no acute distress. HEENT--PERRL, EOMI, mucous membranes and oropharynx mildly dry Neck--supple. No JVD. No bruits. Thyroid normal, trachea midline, no adenopathy. Heart--normal S1 and S2. No murmurs, rubs or gallops. Lungs--clear bilaterally, no respiratory distress, no accessory muscle use. Abdomen--normal bowel sounds and soft. Mild epigastric and left sided abdominal pain Extremities--no cyanosis or clubbing. No edema. Dermatologic--normal skin turgor, normal color, no abnormal lymph nodes, no rash. Neurologic--cranial nerves II through XII grossly intact. Rheumatologic--normal range of motion. Psychiatric--normal affect. Discharge Data Allergies Allergy/AdvReac Type Severity Reaction Status Date / Time No Known Allergies Allergy Verified 06/14/22 11:42 Consultations 06/14/22 11:23 ED Decision to Admit Stat Ordered Studies 06/14/22 07:41 CT head/brain wo con Stat Hospital Course (1) Fever: Occurred at home and not recurred here. resolved (2) Vertigo: Currently resolved in the ER while in bed after ceclizine given Suspect peripheral vertigo in setting of viral infection - ie. vestibular neuritis given concurrent viral infection, young age, no focal neurology elsewhere. Meclizine 25mg PO q8h PRN for vertigo If symptoms not improving or recurrent fever consider lumbar puncture and brain MRI w/wo contrast as above Less likely migrainous given history and current headache (3) Headache: Suspect secondary to viral infection Very low suspicion of encephalitis/meningitis Does not fit with her usual migraines acetaminophen PRN (4) Acute viral syndrome: Rhino/enterovirus positive - suspect acute illness and vertigo due to this Supportive care only (5) Leucocytosis: Suspected secondary to Neulasta rather than infective etiology but given recent chemotherapy: stop antibiotics (6) Breast cancer: follow up with oncology Plan VTE Prophylaxis - Lovenox 40mg SQ daily Diet - regular d/c home Total Time Total Time Spent Total Time Spent (In Minutes): 35 Discharge Plan Discharge Items Patient Disposition: Home - Self-Care Reason For Visit: LEUCKOCYTOSIS Discharge Diagnosis: Enter/rhinovirus infection Activity: Resume your previous activity Non-emergency contact: Primary Care Provider Call non-emergency contact if: you have any medication questions Follow-up/Referrals: Berto Mckenna DO [Primary Care Provider] - Diet: Regular Addtl Attending Provider Instructions: please make appointment to follow up with your regular PCP Pending Studies at Discharge: No Stand-Alone Forms: My [employer], Smoking Cessation Medications and DC Order Prescriptions: Continued Mirena 20 mcg/24 hours (7 yrs) 52 mg intrauterine device 1 device intrauterine YEARLY nicotine 14 mg/24 hr patch 24 hour 1 patch topical DAILY ondansetron HCl 8 mg tablet 8 mg PO Q12 PRN (Reason: Nausea) prochlorperazine maleate 10 mg tablet 10 mg PO Q8H PRN (Reason: Nausea) lidocaine-prilocaine 2.5-2.5 % cream 1 applic topical Q6H PRN (Reason: Pain) nicotine (polacrilex) 4 mg gum 4 mg PO USEASDIRECTD dexamethasone 4 mg tablet 4 mg PO BID loratadine [Claritin] 10 mg Tablet 10 mg PO DAILY PRN (Reason: Allergy Symptoms) Discharge Orders: Discharge Order (Routine); Ordered 06/15/22 Ordered By: Ghazala Escobar Admission Data Admit Date/Time: 06/14/22 11:31 Attending Provider: Ghazala Escobar Admit Provider: Ishan Mckinley Primary Care Provider: Berto Mckenna Other Providers: Ishan Mckinley Other Interventions: Discharge Summary Assessment (RN) Last Done: 06/15/22 11:48 Coding Level of Care Code 98725 INP/OBS DISCH >30 MIN Diagnoses Fever R50.9 Vertigo R42 Headache R51.9 Acute viral syndrome B34.9 Leucocytosis D72.829 Breast cancer C50.919 Time Spent (min) 35
== END 2022-06-15 13:08 | disposition home or self-care (01) ==
LOC: 3E 07:01 → ED 07:01 → SUATTDRO 11:31 → 3E 12:50